=== PATIENT | female | born 1965 | race Two or more races ===

== ENCOUNTER 2024-02-21 07:57 | Emergency (ER) | payer OTHER, SELFPAY ==
[2024-02-21 07:58] VITALS: BP 121/79
--- NOTE | 2024-02-21 08:52 | ED.GENMED ---
History of Present Illness
General
Chief Complaint: Eye Problems
Source: patient
Time Seen by Provider: 02/21/24 08:10
Travel History
Have you had any contact with someone who has COVID-19?: No
Do you have any symptoms of coronavirus? Fever > 100 degrees, chills, cough, shortness of breath, sore throat, loss of taste or smell, muscle aches, or headache?: No
History of Present Illness
History of Present Illness:
58-year-old female presenting to the emergency department for evaluation of right eye pain and foreign body sensation that began upon wakening this morning approximately 1 hour prior to arrival to the emergency department. Patient states she has
not been able to open her eyes fully to see if she has any visual disturbances but she does not believe she has had any blurred vision, double vision or loss of vision. Patient states that she wears a skin mask at nighttime and thinks a part of the
skin mask could have gone into her right eye. She denies any contact with chemical substances. Denies glasses or contact lens use. Denies any traumatic injuries. No history of similar. No other concerns.
Past History
Past History
ED Past Medical History: Other (Hepatitis B)
ED Past Surgical History: None
Social History
Tobacco: Non-smoker
Alcohol: None
Drug: None
Personal:
Living: with family
Review of Systems
Review of Systems
All Other Systems: ROS reviewed and negative except as documented in HPI and ROS
Phy Exam
Physical Exam
Physical Exam:
GENERAL: Alert , in no apparent distress
EYE: Right eye: Conjunctiva moderately injected on the right, no foreign body visualized, pupils 4 mm bilateral, EOMI no periorbital edema/erythema/ecchymosis or signs of trauma. Left eye conjunctive in normal
Fluorescein stain: Within the lower portion of the iris extending from 7:00 to 5:00
Slit-lamp exam: Corneal abrasion appreciated, no ulceration, no foreign body
Visual acuity: Right eye 20�30, left eye 20�30, both eyes
Head: Normocephalic atraumatic
NECK: Supple,
ENT: mmm.
LUNGS: no acute respiratory distress
NEUROLOGICAL: Alert and oriented
SKIN: Warm and dry, skin intact.
MUSCULOSKELETAL: well perfused.
PSYCH: Normal and appropriate interaction.
Scores
Heart Failure Risk
Heart Failure Risk Score: Not Applicable
Heart Score for Chest Pain Patients
STEMI patient?: Not applicable
Withdrawal Assessment of Alcohol
Withdrawal Assessment Completed?: Not applicable
Course
Orders/Labs/Results
Orders:
Orders
02/21/24 08:52
Visual Acuity- Treatment ONCE
Vital Signs
Initial and Last Documented VS:
Initial Vital Signs
Temp Pulse Resp BP Pulse Ox
97.7 F 66 20 121/79 99
02/21/24 07:58 02/21/24 07:58 02/21/24 07:58 02/21/24 07:58 02/21/24 07:58
Last Documented Vital Signs
Temp Pulse Resp BP Pulse Ox
97.7 F 66 20 121/79 99
02/21/24 07:58 02/21/24 07:58 02/21/24 07:58 02/21/24 07:58 02/21/24 07:58
MDM/Problems Addressed
Differential Diagnosis Includes:
Corneal abrasion, corneal ulceration, foreign body, glaucoma
MDM/Problems Addressed:
58-year-old female presenting to the emergency department for evaluation of right-sided ocular pain upon awakening this morning. No contact lenses or glasses use. No visual changes. Fluorescein stain shows large corneal uptake at the inferior
portion of the iris. Corneal abrasion most likely. No ulceration. Given the size of the abrasion will encourage close follow-up with ophthalmology. Ocuflox prescription ordered. NSAIDs/Tylenol as needed for pain. Cool compresses as well.
Aware of return precautions. Otherwise stable for discharge home.
*Pulse Oximetry
Patient hypoxic: no
*Critical Care Note
Total Time (30-74mins, 75-104mins- exclusive of procedures): Not Applicable
ED Attending Note
-
Portions of this chart may have been created with voice recognition software.� Occasional wrong word or��sound alike� substitutions may have occurred due to the inherent limitations of voice recognition software.
Discharge Plan
Departure
Patient Disposition: Home (Routine Discharge)
Date of Disposition: 02/21/24
Time of Disposition: 08:52
Patient with high blood pressure during this ER visit?: No
Discharge Problem:
Injury of conjunctiva and corneal abrasion of right eye w/o FB
Instructions: Corneal Abrasion (DC)
Prescriptions:
New
ofloxacin [Ocuflox] 0.3 % drops
2 drp ophthalmic (eye) QID 5 Days Qty: 5 0RF
Referrals:
Dorota Anderson MD [Active] - (Ophthalmology)
Interventions
Interventions:
*Risk Screen - Suicide Last Done: 02/21/24 07:58
*General Assessment Last Done: 02/21/24 07:58
*Neglect/Abuse Screening Last Done: 02/21/24 07:58
ED- Fall Risk Assessment Last Done: 02/21/24 08:09
*ED COVID-19 Vaccine History Last Done: 02/21/24 08:09
*Nursing Disposition Last Done: 02/21/24 09:11
Discharge Date and Time
Discharge Date/Time: 02/21/24 09:11
Print Language: BULGARIAN
== END 2024-02-21 09:11 | disposition home or self-care (01) ==
LOC: EMR 07:57
PROVIDERS: EMERGENCY PHYSICIAN Emergency Medicine
DX: S05.01XA Injury of conjunctiva and corneal abrasion without foreign body, right eye, initial encounter (principal); X58.XXXA Exposure to other specified factors, initial encounter
CPT/HCPCS: 99283

== ENCOUNTER → 2025-06-04 14:36 | Outpatient (REF) | payer OTHER, SELFPAY ==
[2025-06-04 17:10] LABS: Hematocrit 41.4 % (37.0-47.0); Hemoglobin 13.9 g/dL (12.0-16.0); Mean Corp Hgb Conc. 33.6 g/dL (33.0-37.0); Mean Corpuscular Volume 91.2 fL (81.0-99.0); Nucleated Red Blood Cells % 0 %; Platelet Count 216 10^3/uL (130-400); Red Cell Dist. Width 11.8 % (11.5-14.5)
[2025-06-04 17:20] LABS: INR 1.00; PT 13.5 Sec (11.4-14.6)
[2025-06-04 17:39] LABS: ALT (SGPT) 65 U/L (0-35); AST (SGOT) 59 U/L (14-36); Albumin 4.5 g/dl (3.5-5.0); Alkaline Phosphatase 83 U/L (38-126); Total Protein 7.9 g/dl (6.3-8.2)
[2025-06-06 16:23] LABS: Hepatitis B Surface Antigen Positive (Negative)
[2025-06-06 19:56] LABS: AFP Male/Tumor Marker 2.15 ng/ml
== END ==
LOC: HWRAD 14:36
DX: B18.1 Chronic viral hepatitis B without delta-agent (principal)
CPT/HCPCS: 36415; 76700; 80076; 82105; 85025; 85610; 86704; 86706; 87340; 87350; 87517